=== PATIENT | male | born 1995 | race Hispanic/Latino ===

== ENCOUNTER 2021-06-19 02:24 | Emergency (ER) | payer SELFPAY ==
[~2021-06-19] VITALS: Ht 177.8 cm; Wt 77.1 kg
== END 2021-06-19 02:50 | disposition home or self-care (01) ==
LOC: FSED 02:27
DX: R09.89 Other specified symptoms and signs involving the circulatory and respiratory systems (principal); F17.210 Nicotine dependence, cigarettes, uncomplicated
CPT/HCPCS: 99282